=== PATIENT | female | born 1985 | race African-American/Black ===

== ENCOUNTER 2019-08-20 16:58 | Emergency (ER) | payer SELFPAY ==
[~2019-08-20] VITALS: Ht 162.6 cm; Wt 59.0 kg
[2019-08-20] MEDS ORDERED: ACETAMINOPHEN WITH CODEINE 300/30MG TABLET PO ONE (17:30)
[2019-08-20 18:53] VITALS: BP 128/76
== END 2019-08-20 18:53 | disposition home or self-care (01) ==
LOC: ER 16:58
DX: S93.491A Sprain of other ligament of right ankle, initial encounter (principal); M79.671 Pain in right foot; K21.9 Gastro-esophageal reflux disease without esophagitis; J45.909 Unspecified asthma, uncomplicated; Z88.2 Allergy status to sulfonamides; W22.8XXA Striking against or struck by other objects, initial encounter; Y93.89 Activity, other specified; Y92.810 Car as the place of occurrence of the external cause
CPT/HCPCS: 73610; 73630; 99283; Z7610